=== PATIENT | male | born 1940 | race Caucasian/White ===

== ENCOUNTER 2019-12-21 09:43 | Outpatient (CLI) | payer MEDICARE ==
--- NOTE | 2019-12-22 12:15 | NM ---
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 Low TSH on 11/08/2019 and 06/28/2019. RADIOPHARMACEUTICAL: 226 microcuries Iodine-123 administered orally. FINDINGS: No focal hot nodule is seen. There is a questionable nodule with probably decreased tracer uptake in the right lobe. The 24-hour uptake measures 19% (normal 10-30%). IMPRESSION: 1. Normal 24-hour uptake. 2. Probable right thyroid lobe nodule. Further evaluation with ultrasound is recommended. POS: [facility]
== END 2019-12-21 09:44 | disposition home or self-care (01) ==
LOC: NM 09:43
PROVIDERS: ATTEND Internal Medicine Endocrinology, Diabetes & Metabolism
DX: E05.90 Thyrotoxicosis, unspecified without thyrotoxic crisis or storm (principal)
CPT/HCPCS: 78014; A9516

== ENCOUNTER 2020-01-01 16:31 | Outpatient (CLI) | payer MEDICARE ==
--- NOTE | 2020-01-01 17:05 | ULT ---
Exam: Thyroid ultrasound: HISTORY: Follow-up nuclear medicine test Right lobe measures 3.6 x 1.3 x 1.7 cm. Left lobe measures 3.4 x 1.0 x 1.1 cm Isthmus measures 0.44 cm. 0.4 cm cystic nodule in the right middle lobe and a 0.3 cm cyst in the left middle lobe. 0.2 cm tiny calcific focus in the inferior aspect of the right lobe. IMPRESSION: Tiny cyst/cystic nodules in the right and left lobe of the thyroid as above. Tiny calcific focus in the lower pole right lobe of thyroid. No specific thyroid nodule to account for the appearance of the thyroid scan.
== END 2020-01-01 16:32 | disposition home or self-care (01) ==
LOC: SCSULT 16:31
PROVIDERS: ATTEND Internal Medicine Endocrinology, Diabetes & Metabolism
DX: E05.90 Thyrotoxicosis, unspecified without thyrotoxic crisis or storm (principal); E04.2 Nontoxic multinodular goiter; R94.6 Abnormal results of thyroid function studies
CPT/HCPCS: 76536

== ENCOUNTER 2022-05-24 15:58 | Inpatient (IN) | payer MEDICARE, OTHER ==
[2022-05-24 16:28] LABS: #Basophils 0.1 thou/uL (0.0-0.2); #Eosinphils 0.1 thou/uL (0.0-0.7); #Monocytes 0.4 thou/uL (0.11-0.59); %Basophils 1.2 % (0.0-1.0); %Eosinophils 1.5 % (0.0-10.0); %Lymphocytes 21.9 % (21.0-51.0); %Monocytes 9.2 % (0.0-10.0); %Neutrophils 66.2 % (42.0-75.0); Hemoglobin 11.5 g/dL (14.0-18.0); Mean Corpuscular HGB CONC 33.3 g/dL (32.0-36.0); Mean Corpuscular Hemoglobin 31.6 pg (27.0-31.0); Mean Platelet Volume 7.5 fL (7.4-10.4); Platelet Count 138 10x3/uL (130-400); RBC Distribution Width 12.6 % (11.5-14.5); Red Blood Cell (RBC) Count 3.63 mill/uL (4.70-6.10); White Blood Cell (WBC) Count 4.5 10x3/uL (4.8-10.8)
[2022-05-24 16:51] LABS: ALT (SGPT) 17 U/L (8-55); AST (SGOT) 22 U/L (5-34); Albumin 4.3 g/dL (3.4-4.8); Alkaline Phosphatase 212 U/L (40-110); Anion Gap 13 mmol/L (10-20); BUN (Urea Nitrogen) 24 mg/dL (8.4-25.7); Calc. Creatinine Clearance 0 mL/min (70-130); Calcium 9.3 mg/dL (7.8-10.44); Carbon Dioxide 32 mmol/L (23-31); Chloride 86 mmol/L (98-107); Estimated GFR 42; Globulin 3.2 g/dL (2.4-3.5); Glucose 130 mg/dL (83-110); Potassium 4.3 mmol/L (3.5-5.1); Protein, Total 7.5 g/dL (5.8-8.1); Sodium 127 mmol/L (136-145)
[2022-05-24] MEDS ORDERED: Furosemide 40 MG/4 ML VIAL ONE (18:04)
[2022-05-24 19:16] LABS: INR-International Normal Ratio 1.9; Prothrombin Time 22.4 sec (12.0-14.7)
[2022-05-24] MEDS ORDERED: Acetaminophen 500 MG TAB ONE (20:10)
[2022-05-24] MEDS ORDERED: Ondansetron PF 4 MG/2 ML Vial IVP PRN (20:14)
[2022-05-24 21:04] LABS: Troponin I Less than 0.010 ng/mL (< 0.028)
[2022-05-24 21:14] LABS: SARS-CoV-2 NAA Rapid Test Not Detected (NotDetected)
[2022-05-24] MEDS ORDERED: Warfarin Sodium 5 MG TAB PO SCH (21:15)
[2022-05-24] MEDS: guaiFENesin/DM ER PO SCH (23:01)
[2022-05-24 23:30] VITALS: BMI 25.9
[2022-05-24 23:42] LABS: Troponin I Less than 0.010 ng/mL (< 0.028)
[2022-05-25] MEDS: Acetaminophen 325 MG TAB PO PRN ×3 (00:17→20:49)
[2022-05-25] MEDS: Furosemide 20 MG/2 ML VIAL SLOW IVP SCH ×2 (05:26→14:24)
[2022-05-25 06:00] LABS: #Eosinphils 0.1 thou/uL (0.0-0.7); #Lymphocytes 1.3 thou/uL (1.20-3.40); #Monocytes 0.6 thou/uL (0.11-0.59); #Neutrophils 2.4 thou/uL (1.40-6.50); %Basophils 0.4 % (0.0-1.0); %Eosinophils 2.5 % (0.0-10.0); %Lymphocytes 28.5 % (21.0-51.0); %Monocytes 12.9 % (0.0-10.0); %Neutrophils 55.7 % (42.0-75.0); Hemoglobin 10.7 g/dL (14.0-18.0); Mean Corpuscular HGB CONC 32.5 g/dL (32.0-36.0); Mean Corpuscular Hemoglobin 31.2 pg (27.0-31.0); Mean Corpuscular Volume 95.9 fl (78.0-98.0); Mean Platelet Volume 7.5 fL (7.4-10.4); Platelet Count 146 10x3/uL (130-400); RBC Distribution Width 12.4 % (11.5-14.5); Red Blood Cell (RBC) Count 3.44 mill/uL (4.70-6.10); White Blood Cell (WBC) Count 4.4 10x3/uL (4.8-10.8)
[2022-05-25 06:11] LABS: INR-International Normal Ratio 1.8; Prothrombin Time 21.3 sec (12.0-14.7)
[2022-05-25 06:25] LABS: Anion Gap 12 mmol/L (10-20); BUN (Urea Nitrogen) 28 mg/dL (8.4-25.7); Calc. Creatinine Clearance 46 mL/min (70-130); Calcium 9.4 mg/dL (7.8-10.44); Carbon Dioxide 34 mmol/L (23-31); Chloride 86 mmol/L (98-107); Estimated GFR 44; Glucose 80 mg/dL (83-110); Potassium 4.1 mmol/L (3.5-5.1); Sodium 128 mmol/L (136-145)
[2022-05-25] MEDS: guaiFENesin/DM ER PO SCH ×2 (09:29→20:49)
[2022-05-25] MEDS ORDERED: Warfarin Sodium 5 MG TAB PO SCH (17:00)
[2022-05-25] MEDS ORDERED: Rosuvastatin 10 MG TAB PO SCH (21:00)
[2022-05-26 05:34] LABS: #Eosinphils 0.1 thou/uL (0.0-0.7); #Monocytes 0.4 thou/uL (0.11-0.59); #Neutrophils 2.8 thou/uL (1.40-6.50); %Basophils 0.2 % (0.0-1.0); %Eosinophils 1.6 % (0.0-10.0); %Lymphocytes 23.4 % (21.0-51.0); %Monocytes 10.3 % (0.0-10.0); %Neutrophils 64.4 % (42.0-75.0); Hemoglobin 10.8 g/dL (14.0-18.0); Mean Corpuscular Hemoglobin 31.4 pg (27.0-31.0); Mean Corpuscular Volume 95.3 fl (78.0-98.0); Mean Platelet Volume 7.4 fL (7.4-10.4); Platelet Count 155 10x3/uL (130-400); RBC Distribution Width 12.4 % (11.5-14.5); Red Blood Cell (RBC) Count 3.45 mill/uL (4.70-6.10); White Blood Cell (WBC) Count 4.3 10x3/uL (4.8-10.8)
[2022-05-26] MEDS: Furosemide 20 MG/2 ML VIAL SLOW IVP SCH (05:41)
[2022-05-26 05:42] LABS: INR-International Normal Ratio 1.9; Prothrombin Time 22.6 sec (12.0-14.7)
[2022-05-26 05:55] LABS: Anion Gap 11 mmol/L (10-20); BUN (Urea Nitrogen) 25 mg/dL (8.4-25.7); Calc. Creatinine Clearance 50 mL/min (70-130); Calcium 9.1 mg/dL (7.8-10.44); Carbon Dioxide 34 mmol/L (23-31); Chloride 85 mmol/L (98-107); Estimated GFR 50; Glucose 89 mg/dL (83-110); Sodium 126 mmol/L (136-145)
[2022-05-26 08:24] LABS: Bacteria/HPF None Seen HPF (None Seen); Bilirubin Negative (Negative); Blood, Urine Negative (Negative); Clarity Clear (Clear); Glucose, Urine (Dipstick) Normal (Negative); Ketone, Urine Negative (Negative); Leukocyte Negative Leu/uL (Negative); Nitrite Negative (Negative); Protein, Urine (Dipstick) Negative (Neg-Trace); RBC/HPF 0-3 HPF (0-3); Specific Gravity, Urine 1.009 (1.002-1.036); Squamous Epithelial None Seen HPF (0-3); Urobilinogen Normal mg/dL (Less than 2); WBC/HPF 0-3 HPF (0-3)
[2022-05-26] MEDS: guaiFENesin/DM ER PO SCH (08:49)
[2022-05-26] MEDS: Acetaminophen 325 MG TAB PO PRN (08:50)
[2022-05-26] MEDS ORDERED: Sodium Chloride 1 GM TAB PO SCH (09:00)
[2022-05-26 12:04] VITALS: BP 121/60; TEMP 98.3
[2022-05-26] MEDS ORDERED: Furosemide 40 MG/4 ML VIAL SLOW IVP SCH (14:00)
[2022-05-27] MEDS ORDERED: Furosemide 40 MG TAB PO SCH (07:30)
[2022-05-29] MEDS ORDERED: Warfarin Sodium 2.5 MG TAB PO SCH (17:00)
== END 2022-05-26 13:20 | disposition home or self-care (01) | DRG 292 ==
LOC: ERS 15:58 → 2SW 20:00 → OBSVTOIN 05-25 15:36
PROVIDERS: ADMIT Internal Medicine; ATTEND Family Medicine
DX: I13.0 Hypertensive heart and chronic kidney disease with heart failure and stage 1 through stage 4 chronic kidney disease, or unspecified chronic kidney disease (principal); E87.1 Hypo-osmolality and hyponatremia; I48.21 Permanent atrial fibrillation; N17.9 Acute kidney failure, unspecified; I50.813 Acute on chronic right heart failure; N18.30 Chronic kidney disease, stage 3 unspecified; F17.210 Nicotine dependence, cigarettes, uncomplicated; E78.5 Hyperlipidemia, unspecified; K74.60 Unspecified cirrhosis of liver; E05.00 Thyrotoxicosis with diffuse goiter without thyrotoxic crisis or storm; Z79.01 Long term (current) use of anticoagulants; Z79.899 Other long term (current) drug therapy
CPT/HCPCS: 36415; 71045; 80048; 80053; 81001; 82533; 82570; 83880; 83930; 83935; 84300; 84443; 84484; 84550; 85025; 85610; 93005; 93306; 96374; 96376; G0378; J1940

== ENCOUNTER 2025-04-25 14:09 | Outpatient (CLI) | payer OTHER | END 2025-04-25 14:10 | disposition home or self-care (01) | LOC: ULT 14:09 | PROVIDERS: ATTEND Family Medicine | DX: R31.0 Gross hematuria (principal); Z96.0 Presence of urogenital implants | CPT/HCPCS: 76770 ==